=== PATIENT | female | born 1985 | race Caucasian/White ===

== ENCOUNTER → 2019-01-28 | Outpatient (REF) | payer OTHER | LOC: M SFHCLERA 09:51 | PROVIDERS: ATTEND Nurse Practitioner Family | DX: J02.9 Acute pharyngitis, unspecified (principal) ==

== ENCOUNTER → 2021-04-09 | Outpatient (CLI) | payer OTHER ==
[~2021-04-09] MED LIST: GASTROGRAFIN SOLUTION 30ML (Q9963) As Ordered ONE; ISOVUE-370 76% 100ML VIAL As Ordered ONE
--- NOTE | 2021-04-09 22:53 | REP ---
INDICATION: UMBILICAL HERNIA W/O OBSTRUCTION. COMPARISON: None TECHNIQUE: Axial contrast-enhanced images from the lung bases to the pubic symphysis using oral and 100 cc Isovue 370 intravenous contrast material. Coronal and sagittal reformations obtained. This CT examination was performed using the following dose reduction techniques: Automated exposure control, adjustment of mA and/or kv according to the patient's size, and the use of iterative reconstruction technique. FINDINGS: Liver, spleen, pancreas, gallbladder, and bilateral adrenal glands are normal. Kidneys are relatively normal although subtle presumed simple bilateral renal cysts are suggested measuring roughly 2.2 cm. The enteric system is without obstruction or acute inflammatory process. Surgical changes in the right lower quadrant suggest prior appendectomy. Few scattered colonic and sigmoid diverticula noted without acute diverticulitis. A small nonspecific chronic appearing fat containing periumbilical hernia measures roughly 2 cm. Pelvis demonstrates normal bladder and age-appropriate uterus/adnexa. No ascites. No free air. No intraperitoneal or retroperitoneal adenopathy. Abdominal aorta and vasculature appear normal. Musculoskeletal structures are intact and without acute osseous abnormality. IMPRESSION: No acute abdominopelvic pathology appreciated. Small 2 cm chronic appearing periumbilical fat containing hernia. Scattered diverticula without acute diverticulitis. Suspected bilateral solitary renal cysts. <Electronically signed by Robinson Munoz > 04/09/21 [id number]
== END ==
LOC: M RAD 16:52
PROVIDERS: ATTEND Plastic Surgery Surgery of the Hand
DX: K42.9 Umbilical hernia without obstruction or gangrene (principal)